=== PATIENT | male | born 1985 | race Caucasian/White ===

== ENCOUNTER 2018-03-15 07:06 | Emergency (ER) | payer BC ==
[2018-03-15 07:28] VITALS: BP 116/74
--- NOTE | 2018-03-15 12:31 | UC ---
Marc Bergeron Stephanie, [facility] on 03/15/18 at 0809 . HPI Febrile Illness - HPI Summary HPI Summary: In room note: The pt is a 32 y/o M presenting to with c/o fever that began on 03/06/18. The pt states on 03/14/18 he had a sore throat. He denies fever on . The pt denies white exudate on tonsils. The pt reports hx of mono and strep. He denies hospitalizations for serious reasons. Symptoms include ear congestion and small bumps over hands. He states the current bumps remind him of something he had as a child. MD: Fever and sore throat on 03/06. Healthy, non-smoker. Hx of stomach ulcer. Vital signs stable. Pulse Ox 96. Child recently diagnosed with hand, foot and mouth disease. Visit hx non-contributory to present complaint. Nurse Note: earlier in week daughter had hand foot mouth. he had fever on 103. now with sore throat and ears feel full. - History of Current Complaint Chief Complaint: UCGeneralIllness Time Seen by Provider: 03/15/18 07:19 Hx Obtained From: Patient Onset/Duration: Started Weeks Ago - 1, Still Present Timing: Constant Current Severity: Mild Pain Intensity: 5 Pain Scale Used: 0-10 Numeric Aggravating Factors: Nothing Alleviating Factors: Nothing Associated Signs and Symptoms: Sore Throat - Allergy/Home Medications Allergies/Adverse Reactions: Allergies Allergy/AdvReac Type Severity Reaction Status Date / Time No Known Allergies Allergy Verified 09/08/14 08:47 Home Medications: Home Medications Ibuprofen 400 mg PO 03/15/18 [History] PMH/Surg Hx/FS Hx/Imm Hx Previously Healthy: Yes - Surgical History Surgical History: None - Family History Known Family History: Negative: Renal Disease - Social History Occupation: Employed Full-time Lives: With Family Alcohol Use: Occasionally Substance Use Type: None Smoking Status (MU): Never Smoked Tobacco Have You Smoked in the Last Year: No - Immunization History Most Recent Tetanus Shot: at least 10 yrs ago Review of Systems Constitutional: Negative Skin: Other - bumps on hands Eyes: Negative ENT: Sore Throat, Other - ear congestion Respiratory: Negative Cardiovascular: Negative Gastrointestinal: Negative Genitourinary: Negative Motor: Negative Neurovascular: Negative Musculoskeletal: Negative Neurological: Negative Psychological: Negative Is Patient Immunocompromised?: No All Other Systems Reviewed And Are Negative: Yes - Comments Additional Review of Systems Comments: POSITIVE: SORE THROAT, FEVER (RESOLVED), EAR CONGESTION, BUMPS OVER HANDS Negative: WHITE EXUDATE ON TONSILS, NAUSEA, VOMITING, DIARRHEA Physical Exam - Summary Physical Exam Summary: Appearance: The patient is well-appearing, is in no pain distress, and is well- nourished. Eyes: Conjunctiva are clear. ENT: The hearing is grossly normal and the TMs are normal. There is no muffled or hoarse voice. ERYTHEMA AND POSTERIOIR LYMPH PATCHES IN THROAT. NO EVIDENCE OF EXUDATE. L TONSIL SLIGHTLY LARGER THAN R. NO ORAL EVIDENCE OF LESIONS CONSISTANT WITH HAND FOOT AND MOUTH DISEASE. Neck: The neck is supple and there is no lymphadenopathy. Respiratory: The chest is nontender. The lungs are clear, there are normal breath sounds, and there is no respiratory distress. Cardiovascular: Heart is regular rate and rhythm. There is no murmur. Abdomen: The abdomen is soft and nontender. There is no organomegaly. Bowel sounds: present Musculoskeletal: Strength is intact. The patient moves all extremities. Neurological: The patient is alert. Psychological: The patient displays age appropriate behavior Skin: Negative for rashes. EXAM OF HAND SHOWED NO HAND FOOT AND MOUTH VESICLES. Triage Information Reviewed: Yes Vital Signs: Initial Vital Signs Temp 98.4 F 03/15/18 07:23 Pulse 70 03/15/18 07:23 Resp 18 03/15/18 07:23 BP 116/74 03/15/18 07:23 Pulse Ox 96 03/15/18 07:23 Vital Signs Reviewed: Yes Course/Dx - Course Course Of Treatment: Healthy 32 y/o with 1 day transient fever with residual sore throat and exposure to hand, foot and mouth disease. Negative strep. Although there is no skin lesion constant with hand foot and mouth, this could be an adult case of this or viral sore throat. Medications have been included in the original chart and reviewed. - Febrile Illness Differential Diagnoses: Other: - hand foot and mouth disease vs strep vs viral pharyngitis - Diagnoses Clinic Provider Diagnoses: viral pharyngitis Discharge - Sign-Out/Discharge Documenting (check all that apply): Discharge/Admit/Transfer - Discharge - Discharge Plan Condition: Stable Disposition: HOME Patient Education Materials: Pharyngitis (ED), Hand, Foot, and Mouth Disease ( ED) Referrals: [facility] [Outside] - 3 Days Additional Instructions: PLEASE SEEK CARE AT THE EMERGENCY DEPARTMENT IF SYMPTOMS WORSEN OR IF NEW SYMPTOMS DEVELOP. You have a viral sore throat. Ice chips and tea and honey can help. Re check at any time for increased difficulty breathing or swallowing. - Billing Disposition and Condition Condition: STABLE Disposition: HOME The documentation as recorded by the Marc shaw Stephanie accurately reflects the service I personally performed and the decisions made by , Terry Graham MD.
== END 2018-03-15 08:17 | disposition home or self-care (01) ==
LOC: UCEAST 07:06
DX: J02.8 Acute pharyngitis due to other specified organisms (principal)
CPT/HCPCS: 87651; 99211; G0463

== ENCOUNTER 2019-08-06 20:24 | Emergency (ER) | payer BC ==
[2019-08-06 20:34] VITALS: BP 126/77
--- NOTE | 2019-08-06 20:40 | UC ---
Throat Pain/Nasal Hira HPI - HPI Summary HPI Summary: 34 yo male presents with cold symptoms. He tells me that for the past 3 weeks he has had an intermittent dry cough that waxes and wanes. Yesterday he developed a sore throat and b/l ear pain that seem worse today. He mentions that he is stressed with work and house work preparing for a new baby and is not sleeping well or as much as he should. He felt feverish yesterday, but not today. He has been taking ibuprofen and alaina seltzer for his symptoms with mild relief. Denies sinus symptoms, SOB, rash, abdominal pain, n/v - History of Current Complaint Chief Complaint: UCGeneralIllness Stated Complaint: THROAT, EAR ISSUE Time Seen by Provider: 08/06/19 20:40 Hx Obtained From: Patient Onset/Duration: Gradual Onset Severity: Moderate Pain Intensity: 5 Pain Scale Used: 0-10 Numeric - Allergies/Home Medications Allergies/Adverse Reactions: Allergies Allergy/AdvReac Type Severity Reaction Status Date / Time No Known Allergies Allergy Verified 08/06/19 20:34 Home Medications: Home Medications Dm/PE/Acetaminophen/Chlorphenr [Alaina-[place] Plus Cold &] 1 cap PO Q6H 08/06/19 [History Confirmed 08/06/19] PMH/Surg Hx/FS Hx/Imm Hx - Additional Past Medical History Additional PMH: None - Surgical History Surgical History: None - Family History Known Family History: Positive: Non-Contributory Negative: Renal Disease - Social History Occupation: Employed Full-time Lives: With Family Alcohol Use: Occasionally Substance Use Type: None Smoking Status (MU): Never Smoked Tobacco Have You Smoked in the Last Year: No - Immunization History Most Recent Tetanus Shot: at least 10 yrs ago Review of Systems All Other Systems Reviewed And Are Negative: No Constitutional: Positive: Fever Skin: Positive: Negative Eyes: Positive: Negative ENT: Positive: Sore Throat, Ear Ache Respiratory: Positive: Cough Cardiovascular: Positive: Negative Gastrointestinal: Positive: Negative Neurological: Positive: Negative Psychological: Positive: Negative Physical Exam - Summary Physical Exam Summary: GENERAL: NAD. WDWN. No pain distress. SKIN: No rashes, sores, lesions, or open wounds. HEENT: Head: AT/NC Eyes: EOM intact. Conjunctiva clear without inflammation or discharge. Ears: Hearing grossly normal. TMs intact, no bulging, erythema, or edema. Nose: Nasal mucosa pink and moist. NTTP maxillary and frontal sinus. Throat: Posterior oropharynx with mild erythema. No exudates or tonsillar enlargement. Uvula midline. NECK: Supple. Nontender. No lymphadenopathy. CHEST: CTAB. No accessory muscle use. Breathing comfortably and in no distress. CV: RRR. Pulses intact. Cap refill <2seconds NEURO: Alert. PSYCH: Age appropriate behavior. Triage Information Reviewed: Yes Vital Signs: Initial Vital Signs Temp 98.1 F 08/06/19 20:31 Pulse 75 08/06/19 20:31 Resp 16 08/06/19 20:31 BP 126/77 08/06/19 20:31 Pulse Ox 99 08/06/19 20:31 Laboratory Tests 08/06/19 20:50 Group A Strep Rapid Negative Vital Signs Reviewed: Yes Throat Pain/Nasal Course/Dx - Course Course Of Treatment: POC strep negative. Discussed viral vs bacterial causes with the pt and he prefers to be on anbx at this time. - Differential Dx/Diagnosis Provider Diagnosis: Sore throat Discharge ED - Sign-Out/Discharge Documenting (check all that apply): Patient Departure All imaging exams completed and their final reports reviewed: No Studies - Discharge Plan Condition: Stable Disposition: HOME Prescriptions: Amoxicillin PO (*) [Amoxicillin 500 MG CAP*] 500 mg PO Q12H #14 cap Patient Education Materials: Pharyngitis (ED) Referrals: No Primary Care Phys,NOPCP [Primary Care Provider] - Additional Instructions: If you develop a fever, shortness of breath, chest pain, new or worsening symptoms - please call your PCP or go to the ED immediately. - Billing Disposition and Condition Condition: STABLE Disposition: Home
== END 2019-08-06 20:55 | disposition home or self-care (01) ==
LOC: UCEAST 20:24
DX: J02.9 Acute pharyngitis, unspecified (principal); H92.03 Otalgia, bilateral
CPT/HCPCS: 87651; 99212; G0463